=== PATIENT | male | born 1950 | race Caucasian/White ===

== ENCOUNTER 2018-07-30 20:20 | Inpatient (IN) | payer MEDICARE, OTHER ==
[~2018-07-30] VITALS: Ht 180.3 cm; Wt 104.1 kg
[~2018-07-30 20:20] MED LIST: ASP325T; ATOR80TA; EZET10TA5; MULT-608; OMG1KC; REMICADE INFUSION
[2018-07-30] MEDS ORDERED: ASPIRIN 81 MG CHEW (CHILDREN'S ASA) PO STA (20:31)
[2018-07-30] MEDS ORDERED: ASPIRIN 81 MG CHEW (CHILDREN'S ASA) ONE (20:32)
[2018-07-30 20:44] LABS: BASOPHILS % (AUTO) 0 % (0-10); EOSINOPHILS # (AUTO) 0.1 10^3/uL (0.0-0.3); EOSINOPHILS % (AUTO) 1 % (0-10); HEMATOCRIT 41 % (40-54); HEMOGLOBIN 14.9 G/DL (13.3-17.7); LYMPHOCYTES # (AUTO) 2.1 X 10^3 (1.0-4.0); LYMPHOCYTES % (AUTO) 31 % (12-44); MEAN CORPUSCULAR HEMOGLOBIN 34 PG (25-34); MEAN CORPUSCULAR HGB CONC 36 G/DL (32-36); MEAN CORPUSCULAR VOLUME 95 FL (80-99); MEAN PLATELET VOLUME 9.4 FL (7.4-10.4); MONOCYTES # (AUTO) 0.8 X 10^3 (0.0-1.0); MONOCYTES % (AUTO) 11 % (0-12); NEUTROPHILS # (AUTO) 3.9 X 10^3 (1.8-7.8); NEUTROPHILS % (AUTO) 57 % (42-75); PLATELET COUNT 106 10^3/uL (130-400); RED CELL DISTRIBUTION WIDTH 13.6 % (10.0-14.5); WHITE BLOOD COUNT 6.8 10^3/uL (4.3-11.0)
[2018-07-30 20:57] LABS: INR 1.5 (0.8-1.4)
--- NOTE | 2018-07-30 21:01 | ED Chest Pain ---
General Chief Complaint: Respiratory Problems Stated Complaint: TIGHTNESS CHEST,SOB Nursing Triage Note: PT AMB TO [facility] 5 WITH COMPLAINT OF SOA FOR APPROXIMATELY 2 WEEKS. PT STATES HE HAS HAD SOB ON AND OFF FOR 2 WEEKS. STATES HE NOTICES IT ON EXERTION. PT IS SOB TALKING. STATES THE SOB IS SIMILAR TO WHEN HE HAD STENTS PLACE IN 2002. DENIES CHEST PAIN. Nursing Sepsis Screen: No Definite Risk Source: patient Exam Limitations: no limitations History of Present Illness Date Seen by Provider: Jul 30, 2018 Time Seen by Provider: 20:31 Initial Comments Here with shortness of air and some central chest pressure that is worse with exertion that's been going on over the last 2 weeks. Had similar presentation when he needed stents previously which caused him concern. Does have report arthritis and is on Remicade infusions. Denies fever or chills. Denies nausea or vomiting. Shortness of breath is occurring even with talking. Certainly worse with exertion and better with rest. Chest pain is described as a light pressure centrally that comes and goes and is essentially gone right now. Timing/Duration: other (2 weeks) Severity/Quality: mild, pressure Location: central Radiation: no radiation Activities at Onset: none Prior CP/Workup: cardiac cath ASA po SPINNERET PERSON: No NTG SL SPINNERET PERSON: No Associated Symptoms: No abdominal pain, No diaphoresis, No nausea/vomiting; shortness of breath; No weakness Allergies and Home Medications Allergies Coded Allergies: No Known Drug Allergies (Unverified Allergy, Mild, 06/16/09) Patient Home Medication List Home Medication List Reviewed: Yes Review of Systems Review of Systems Constitutional: see HPI; No chills, No fever; weakness EENTM: No Symptoms Reported Respiratory: Denies Cough; Shortness of Air, SOA With Exertion Cardiovascular: Chest Pain; Denies Edema Gastrointestinal: Denies Abdominal Pain, Denies Nausea, Denies Vomiting Genitourinary: No Symptoms Reported Musculoskeletal: no symptoms reported Skin: no symptoms reported All Other Systems Reviewed Negative Unless Noted: Yes Past [place]-Uvdmxg-Uqzssa Hx Past Med/Social Hx: Reviewed Nursing Past Med/Soc Hx Patient Social History Alcohol Use: Denies Use Recreational Drug Use: No Smoking Status: Former Smoker Recent Foreign Travel: No Contact w/Someone Who Travel: No Recent Infectious Disease Expo: No Recent Hopitalizations: No Immunizations Up To Date Tetanus Booster (TDap): Unknown PED Vaccines UTD: Yes Past Medical History Surgeries: Yes Orthopedic Respiratory: No Cardiac: Yes (STENTS) Neurological: No Reproductive Disorders: No Sexually Transmitted Disease: No Genitourinary: Yes Prostate Problems Gastrointestinal: No Musculoskeletal: Yes (RA) Endocrine: No Psychosocial: No Blood Disorders: No Family Medical History Reviewed Nursing Family Hx Physical Exam Vital Signs Vital Signs - First Documented 07/30/18 20:21 Temp 96.8 Pulse 79 Resp 20 B/P (MAP) 144/97 (113) Pulse Ox 93 O2 Delivery Room Air Capillary Refill : Less Than 3 Seconds Height, Weight, BMI Height: 5'11.00" Weight: 210lbs. oz. 95.236535bf; BMI Method:Stated General Appearance: No Apparent Distress, WD/WN HEENT: PERRL/EOMI, Pharynx Normal Neck: Non Tender, Supple Respiratory: No Accessory Muscle Use, No Respiratory Distress, Crackles (few bibasal or crackles) Cardiovascular: Regular Rate, Rhythm, No Murmur Gastrointestinal: Non Tender, Soft Extremity: Normal Range of Motion, Non Tender Neurologic/Psychiatric: Alert, Oriented x3 Skin: Normal Color, Warm/Dry Focused Exam Lactate Level 07/30/18 20:40: Lactic Acid Level 1.30 Lactic Acid Level Laboratory Tests Test 07/30/18 20:40 Lactic Acid Level 1.30 MMOL/L (0.50-2.00) Progress/Results/Core Measures Results/Orders Lab Results Laboratory Tests Test 07/30/18 20:37 07/30/18 20:40 Range/Units White Blood Count 6.8 4.3-11.0 10^3/uL Red Blood Count 4.36 4.35-5.85 10^6/uL Hemoglobin 14.9 13.3-17.7 G/DL Hematocrit 41 40-54 % Mean Corpuscular Volume 95 80-99 FL Mean Corpuscular Hemoglobin 34 25-34 PG Mean Corpuscular Hemoglobin Concent 36 32-36 G/DL Red Cell Distribution Width 13.6 10.0-14.5 % Platelet Count 106 L 130-400 10^3/uL Mean Platelet Volume 9.4 7.4-10.4 FL Neutrophils (%) (Auto) 57 42-75 % Lymphocytes (%) (Auto) 31 12-44 % Monocytes (%) (Auto) 11 0-12 % Eosinophils (%) (Auto) 1 0-10 % Basophils (%) (Auto) 0 0-10 % Neutrophils # (Auto) 3.9 1.8-7.8 X 10^3 Lymphocytes # (Auto) 2.1 1.0-4.0 X 10^3 Monocytes # (Auto) 0.8 0.0-1.0 X 10^3 Eosinophils # (Auto) 0.1 0.0-0.3 10^3/uL Basophils # (Auto) 0.0 0.0-0.1 10^3/uL Prothrombin Time 19.0 H 12.2-14.7 SEC INR Comment 1.5 H 0.8-1.4 Activated Partial Thromboplast Time 41 H 24-35 SEC D-Dimer 1.48 H 0.00-0.49 UG/ML Sodium Level 138 135-145 MMOL/L Potassium Level 4.0 3.6-5.0 MMOL/L Chloride Level 109 H 98-107 MMOL/L Carbon Dioxide Level 20 L 21-32 MMOL/L Anion Gap 9 5-14 MMOL/L Blood Urea Nitrogen 18 7-18 MG/DL Creatinine 1.35 H 0.60-1.30 MG/DL Estimat Glomerular Filtration Rate 52 BUN/Creatinine Ratio 13 Glucose Level 119 H 70-105 MG/DL Calcium Level 9.2 8.5-10.1 MG/DL Corrected Calcium 9.7 8.5-10.1 MG/DL Magnesium Level 2.0 1.8-2.4 MG/DL Total Bilirubin 1.9 H 0.1-1.0 MG/DL Aspartate Amino Transf (AST/SGOT) 57 H 5-34 U/L Alanine Aminotransferase (ALT/SGPT) 38 0-55 U/L Alkaline Phosphatase 76 40-136 U/L Myoglobin 217.9 H 10.0-92.0 NG/ML Troponin I < 0.028 <0.028 NG/ML C-Reactive Protein High Sensitivity 0.19 0.00-0.50 MG/DL B-Type Natriuretic Peptide 92.4 <100.0 PG/ML Total Protein 8.3 H 6.4-8.2 GM/DL Albumin 3.4 3.2-4.5 GM/DL Lactic Acid Level 1.30 0.50-2.00 MMOL/L My Orders Orders - ARSH CLAIRE MD Cbc With Automated Diff (07/30/18 20:31) Magnesium (07/30/18 20:31) Chest 1 View, Ap/Pa Only (07/30/18 20:31) Ekg Tracing (07/30/18 20:31) Cardiac Profile 1 (07/30/18 20:31) Comprehensive Metabolic Panel (07/30/18 20:31) Myoglobin Serum (07/30/18 20:31) Protime With Inr (07/30/18 20:31) Partial Thromboplastin Time (07/30/18 20:31) O2 (07/30/18 20:31) Monitor-Rhythm Ecg Trace Only (07/30/18 20:31) Lipid Panel (07/31/18 06:00) Saline Lock/Iv-Start (07/30/18 20:31) BNP (07/30/18 20:31) Fibrin Degradation Products (07/30/18 20:31) Aspirin Chewable Tablet (Baby Aspirin Ch (07/30/18 20:31) Aspirin Chewable Tablet (Baby Aspirin Ch (07/30/18 20:32) Hs C Reactive Protein (07/30/18 20:42) Lactic Acid Analyzer (07/30/18 20:42) Blood Culture (07/30/18 20:42) Ns Iv 1000 Ml (Sodium Chloride 0.9%) (07/30/18 21:31) Ct Angio Chest W (07/30/18 21:31) Iohexol Injection (Omnipaque 350 Mg/Ml 1 (07/30/18 21:45) Received Contrast (Hold Metformin- Contr (07/30/18 21:45) Cefepime Injection (Maxipime Injection) (07/30/18 22:45) Medications Given in ED Current Medications Medications Dose Ordered Sig/Senait Route Start Time Stop Time Status Last Admin Dose Admin Iohexol 150 ml ONCE ONCE IV 07/30/18 21:45 07/30/18 21:47 DC 07/30/18 21:51 125 ML Vital Signs/I&O 07/30/18 20:21 Temp 96.8 Pulse 79 Resp 20 B/P (MAP) 144/97 (113) Pulse Ox 93 O2 Delivery Room Air Blood Pressure Mean: 113 Progress Progress Note : Progress Note Seen and evaluated. Chest pain protocol initiated. Given patient's status with Remicade, will add blood cultures and lactic acid. Monitor patient. D-dimer elevated. CT angiogram of the chest ordered. Normal saline 1 L bolus ordered. Monitor patient. CT chest does not show PE but does show bilateral pneumonia and this is consistent with chest x-ray. I did discuss the case with Dr. OVALLE at 2230 and he accepts patient for admission, inpatient status. I did discuss the case with Dr. Hart at 2234. He accepts patient in consult. We will initiate cefepime given patient's history of COPD with findings consistent on CT scan. Cefepime 2 g IV ordered. Admit inpatient status. Patient and family agree with plan. Initial ECG Impression Date: Jul 30, 2018 Initial ECG Impression Time: 20:27 Initial ECG Rate: 64 Initial ECG Rhythm: Normal Sinus Initial ECG Comparisson: Unchanged Comment Sinus rhythm with first degree block. No evidence of ST elevation MS. Incomplete right bundle branch block noted. Similar to previous of 06/16/2009. Interpreted by me. Diagnostic Imaging Diagonstic Imaging: Xray Plain Films/CT/US/NM/MRI: chest Comments NAME: KYLIE MILLER [facility] REC#: [id number] PT STATUS: REG ER : 1950 PHYSICIAN: ARSH CLAIRE MD ADMIT DATE: 07/30/18/ER Signed Date of Exam: 07/30/18 CHEST 1 VIEW, AP/PA ONLY INDICATION: Chest pain. FINDINGS: Portable chest. There is consolidated infiltrate in the right upper lobe along the fissure. There also is some alveolar infiltrate in the left lung base. Right lower lobe as well as left upper lung are clear. There is cardiomegaly. No evidence of pulmonary edema. No pneumothorax or pleural effusion. No bony abnormalities. IMPRESSION: Findings are consistent with bilateral pneumonia. Dictated by: Dictated on workstation # [id number] Dict: 07/30/182054 Trans: 07/30/182119 Interpreted by: KALLI MERIDA MD Electronically signed by: KALLI MERIDA MD 07/30/182119 Diagonstic Imaging: CT Plain Films/CT/US/NM/MRI: chest Comments No pulmonary emboli. Findings of COPD with multifocal patchy airspace opacity suspicious for multifocal pneumonia. Ascending thoracic aorta ectasia to 4.5 cm and evidence of coronary artery disease. Recommended clinical follow-up. Departure Communication (Admissions) Time/Spoke to Admitting Phy: 22:30 Time/Spoke to Consulting Phy: 22:34 Impression Primary Impression: Bilateral pneumonia Qualified Codes: J18.9 - Pneumonia, unspecified organism Additional Impression: Chest pain Qualified Codes: R07.9 - Chest pain, unspecified Disposition: ADMITTED INPATIENT Condition: Stable Admissions Decision to Admit Reason: Admit from ER (General) Decision to Admit/Date: Jul 30, 2018 Time/Decision to Admit Time: 22:30 Departure-Patient Inst. Referrals: NO,LOCAL PHYSICIAN (PCP/Family) Primary Care Physician ARSH CLAIRE MD Jul 30, 2018 21:01
[2018-07-30 21:06] LABS: ALANINE AMINOTRANSFERASE 38 U/L (0-55); ALBUMIN 3.4 GM/DL (3.2-4.5); ALKALINE PHOSPHATASE 76 U/L (40-136); BILIRUBIN,TOTAL 1.9 MG/DL (0.1-1.0); BUN/CREATININE RATIO 13; CALCIUM 9.2 MG/DL (8.5-10.1); CARBON DIOXIDE 20 MMOL/L (21-32); CHLORIDE 109 MMOL/L (98-107); CREATININE SERUM 1.35 MG/DL (0.60-1.30); GFR ESTIMATED 52; GLUCOSE 119 MG/DL (70-105); SODIUM 138 MMOL/L (135-145); TOTAL PROTEIN 8.3 GM/DL (6.4-8.2)
[2018-07-30 21:13] LABS: MYOGLOBIN SERUM 217.9 NG/ML (10.0-92.0)
[2018-07-30] MEDS ORDERED: NS IV 1000 ML 1,000 ML IV SCH (21:31)
[2018-07-30] MEDS ORDERED: IOHEXOL 350 MG/ML 150 ML (OMNIPAQUE 350) VIAL IV ONE (21:45)
[2018-07-30] MEDS ORDERED: HOLD METFORMIN - RECEIVED CONTRAST 20 ML VIAL IV SCH (21:45)
[2018-07-30] MEDS ORDERED: CEFEPIME INJECTION 2,000 MG in WATER (STERILE) FOR INJECTION 20 ML IV ONE (22:45)
[2018-07-30 23:25] VITALS: BP 186/102
--- NOTE | 2018-07-30 23:25 | NUR ---
KYLIE MILLER admitted to room 414-1, with an admitting diagnosis of PNEUMONIA AND CHEST PAIN, on 07/30/18 from [place] via , accompanied by STAFF AND FAMILY.KYLIE MILLER introduced to surroundings, call light, bed controls, phone, TV, temperature control, lights, meal times, smoking policy, visitor policy, side rail policy, bathrooms and showers. Patient Rights given to patient in the handbook. KYLIE MILLER verbalizes understanding that [facility] is not responsible for the loss or damage to any personal effects or valuables that are kept in the patients posession during their hospitalization.
[2018-07-30 23:40] VITALS: BP 158/85
[2018-07-30 23:55] VITALS: BP 166/94
[2018-07-31] VITALS (9 sets, daily range): BP systolic 133–168; BP diastolic 78–96
[2018-07-31] MEDS: NS IV 1000 ML 1,000 ML IV SCH ×2 (01:30→02:54)
[2018-07-31] MEDS ORDERED: ACETAMINOPHEN 325 MG TABLET PO PRN (02:45)
[2018-07-31] MEDS ORDERED: ONDANSETRON 4 MG/2 ML (SDV) Z0FRAN IV PRN (02:45)
[2018-07-31] MEDS ORDERED: morphine INJ 4 MG/ML 1 ML (VIAL/SYRINGE) IV PRN (02:45)
[2018-07-31] MEDS ORDERED: NITROGLYCERIN 0.4 MG SL TABS BTL 25'S SL PRN (02:45)
[2018-07-31 03:53] LABS: BASOPHILS % (AUTO) 0 % (0-10); EOSINOPHILS # (AUTO) 0.1 10^3/uL (0.0-0.3); EOSINOPHILS % (AUTO) 2 % (0-10); HEMATOCRIT 38 % (40-54); HEMOGLOBIN 13.5 G/DL (13.3-17.7); LYMPHOCYTES % (AUTO) 39 % (12-44); MEAN CORPUSCULAR HEMOGLOBIN 34 PG (25-34); MEAN CORPUSCULAR HGB CONC 36 G/DL (32-36); MEAN CORPUSCULAR VOLUME 96 FL (80-99); MEAN PLATELET VOLUME 9.7 FL (7.4-10.4); MONOCYTES # (AUTO) 0.7 X 10^3 (0.0-1.0); MONOCYTES % (AUTO) 13 % (0-12); NEUTROPHILS # (AUTO) 2.3 X 10^3 (1.8-7.8); NEUTROPHILS % (AUTO) 46 % (42-75); PLATELET COUNT 84 10^3/uL (130-400); RED CELL DISTRIBUTION WIDTH 13.8 % (10.0-14.5); WHITE BLOOD COUNT 5.1 10^3/uL (4.3-11.0)
[2018-07-31 04:15] LABS: CREATINE KINASE 328 U/L (30-200)
[2018-07-31 04:18] LABS: ALANINE AMINOTRANSFERASE 33 U/L (0-55); ALKALINE PHOSPHATASE 67 U/L (40-136); BILIRUBIN,TOTAL 1.4 MG/DL (0.1-1.0); BUN/CREATININE RATIO 14; CALCIUM 8.3 MG/DL (8.5-10.1); CARBON DIOXIDE 20 MMOL/L (21-32); CHLORIDE 111 MMOL/L (98-107); CREATININE SERUM 1.05 MG/DL (0.60-1.30); GFR ESTIMATED > 60; GLUCOSE 97 MG/DL (70-105); POTASSIUM 3.7 MMOL/L (3.6-5.0); SODIUM 137 MMOL/L (135-145)
[2018-07-31 04:20] LABS: CHOLESTEROL 101 MG/DL (< 200); HDL CHOLESTEROL 32 MG/DL (40-60); TRIGLYCERIDES 62 MG/DL (<150); VLDL CHOLESTEROL 12 MG/DL (5-40)
[2018-07-31 04:23] LABS: MYOGLOBIN SERUM 114.3 NG/ML (10.0-92.0)
[2018-07-31] MEDS ORDERED: RT-ALBUTEROL/IPRATROPIUM 3 ML (DUONEB) VIAL INH PRN (05:15)
--- NOTE | 2018-07-31 06:20 | Diagnostic Imaging Report ---
PROCEDURE: CT angiography of the chest with contrast. TECHNIQUE: Multiple contiguous axial images were obtained through the chest after uneventful bolus administration of intravenous contrast. 2D reconstructed CTA MIP acquisitions were also performed. Auto Exposure Controls were utilized during the CT exam to meet ALARA standards for radiation dose reduction. INDICATION: Dyspnea and elevated d-dimer There is good opacification of pulmonary arteries without intraluminal filling defect. There is aneurysmal dilatation of the ascending thoracic aorta which reaches 4.5 cm in diameter. Coronary artery calcifications are noted. Lungs demonstrate diffuse centrilobular emphysema with superimposed interstitial and groundglass opacities involving the upper and lower lobes bilaterally. There is no significant pleural or pericardial fluid. No pathologic adenopathy is identified. Upper abdominal sections reveal nodular surface contour to the liver. IMPRESSION: No CTA evidence of pulmonary embolism. There is 4.5 cm ascending thoracic aortic aneurysm. There is no evidence of rupture or other acute abnormality in the thorax. There is evidence of background COPD with superimposed groundglass and interstitial markings in both lungs which could be due to multifocal pneumonitis. Dictated by: Dictated on workstation # [id number]
[2018-07-31] MEDS: RT-ALBUTEROL/IPRATROPIUM 3 ML (DUONEB) VIAL INH SCH ×2 (06:59→10:04)
--- NOTE | 2018-07-31 07:47 | Consultation-Cardiology ---
HPI-Cardiology Cardiology Consultation Date of Consultation 07/31/18 Date of Admission Time Seen by Provider: 07:43 Indication: coronary artery disease HPI 68 years or gentleman with history of coronary artery disease, hypertension and hyperlipidemia. Patient was having increasing shortness of breath over the past one to 2 weeks. Denied any chest pain. No palpitation, syncope or near syncopal episodes. Came into the hospital and diagnosed with pneumonia, currently laying down a bit, denied any active chest pain. No palpitation. No fever or chills. Has been having cough productive of brownish sputum Home Medications & Allergies Allergies: Coded Allergies: No Known Drug Allergies (Unverified , 06/16/09) Home Medication List Reviewed: Yes SBH-Tgotgh-Szvqbj Hx Patient Social History Marital Status: Employed/Student: employed Alcohol Use: Denies Use Recreational Drug Use: No Smoking Status: Former Smoker Recent Foreign Travel: No Recent Infectious Disease Expo: No Recent Hopitalizations: No Immunizations Up To Date Tetanus Booster (TDap): Unknown Date of Influenza Vaccine: Mar 02, 2018 Past Medical History past medical history described below Family Medical History Family Medical Hx noncontributory to his current condition Review of Systems Constitutional: see HPI, malaise EENTM: see HPI, no symptoms reported Respiratory: see HPI; No cough; dyspnea on exertion; No hemoptysis, No orthopnea, No phlegm; short of breath; No stridor, No wheezing, No other Cardiovascular: see HPI; No chest pain, No edema, No Hx of Intervention, No palpitations, No syncope, No vascular heart diseas, No other Gastrointestinal: no symptoms reported, see HPI Genitourinary: no symptoms reported, see HPI Musculoskeletal: see HPI, muscle stiffness Skin: no symptoms reported, see HPI Psychiatric/Neurological: No Symptoms Reported, See HPI Reviewed Test Results Reviewed Test Results Lab Laboratory Tests Test 07/30/18 20:37 07/30/18 20:40 07/31/18 02:50 Range/Units White Blood Count 6.8 5.1 4.3-11.0 10^3/uL Red Blood Count 4.36 3.95 L 4.35-5.85 10^6/uL Hemoglobin 14.9 13.5 13.3-17.7 G/DL Hematocrit 41 38 L 40-54 % Mean Corpuscular Volume 95 96 80-99 FL Mean Corpuscular Hemoglobin 34 34 25-34 PG Mean Corpuscular Hemoglobin Concent 36 36 32-36 G/DL Red Cell Distribution Width 13.6 13.8 10.0-14.5 % Platelet Count 106 L 84 L 130-400 10^3/uL Mean Platelet Volume 9.4 9.7 7.4-10.4 FL Neutrophils (%) (Auto) 57 46 42-75 % Lymphocytes (%) (Auto) 31 39 12-44 % Monocytes (%) (Auto) 11 13 H 0-12 % Eosinophils (%) (Auto) 1 2 0-10 % Basophils (%) (Auto) 0 0 0-10 % Neutrophils # (Auto) 3.9 2.3 1.8-7.8 X 10^3 Lymphocytes # (Auto) 2.1 2.0 1.0-4.0 X 10^3 Monocytes # (Auto) 0.8 0.7 0.0-1.0 X 10^3 Eosinophils # (Auto) 0.1 0.1 0.0-0.3 10^3/uL Basophils # (Auto) 0.0 0.0 0.0-0.1 10^3/uL Prothrombin Time 19.0 H 12.2-14.7 SEC INR Comment 1.5 H 0.8-1.4 Activated Partial Thromboplast Time 41 H 24-35 SEC D-Dimer 1.48 H 0.00-0.49 UG/ML Sodium Level 138 137 135-145 MMOL/L Potassium Level 4.0 3.7 3.6-5.0 MMOL/L Chloride Level 109 H 111 H 98-107 MMOL/L Carbon Dioxide Level 20 L 20 L 21-32 MMOL/L Anion Gap 9 6 5-14 MMOL/L Blood Urea Nitrogen 18 15 7-18 MG/DL Creatinine 1.35 H 1.05 0.60-1.30 MG/DL Estimat Glomerular Filtration Rate 52 > 60 BUN/Creatinine Ratio 13 14 Glucose Level 119 H 97 70-105 MG/DL Calcium Level 9.2 8.3 L 8.5-10.1 MG/DL Corrected Calcium 9.7 9.1 8.5-10.1 MG/DL Magnesium Level 2.0 1.8-2.4 MG/DL Total Bilirubin 1.9 H 1.4 H 0.1-1.0 MG/DL Aspartate Amino Transf (AST/SGOT) 57 H 46 H 5-34 U/L Alanine Aminotransferase (ALT/SGPT) 38 33 0-55 U/L Alkaline Phosphatase 76 67 40-136 U/L Myoglobin 217.9 H 114.3 H 10.0-92.0 NG/ML Troponin I < 0.028 < 0.028 <0.028 NG/ML C-Reactive Protein High Sensitivity 0.19 0.00-0.50 MG/DL B-Type Natriuretic Peptide 92.4 <100.0 PG/ML Total Protein 8.3 H 7.0 6.4-8.2 GM/DL Albumin 3.4 3.0 L 3.2-4.5 GM/DL Lactic Acid Level 1.30 0.50-2.00 MMOL/L Total Creatine Kinase 328 H 30-200 U/L Triglycerides Level 62 <150 MG/DL Cholesterol Level 101 < 200 MG/DL LDL Cholesterol Direct 54 1-129 MG/DL VLDL Cholesterol 12 5-40 MG/DL HDL Cholesterol 32 L 40-60 MG/DL Physical Exam Vital Signs Vital Signs - First Documented 07/30/18 07/31/18 20:21 04:37 Temp 96.8 Pulse 79 Resp 20 B/P (MAP) 144/97 (113) Pulse Ox 93 O2 Delivery Room Air FiO2 21 Capillary Refill : Less Than 3 Seconds Height, Weight, BMI Height: 5'11.00" Weight: 229lbs. 6.4oz. 104.083896el; 32.0 BMI Method:Stated General Appearance: No Apparent Distress, WD/WN Eyes: Bilateral Eye Normal Inspection, Bilateral Eye PERRL, Bilateral Eye EOMI HEENT: PERRL/EOMI, TMs Normal, Normal ENT Inspection, Pharynx Normal Neck: Full Range of Motion, Normal Inspection, Non Tender, Supple, Carotid Bruit Respiratory: Chest Non Tender, Lungs Clear, Normal Breath Sounds, No Accessory Muscle Use, No Respiratory Distress Cardiovascular: Regular Rate, Rhythm, No Edema, No Gallop, No JVD, No Murmur, Normal Peripheral Pulses Gastrointestinal: Normal Bowel Sounds, No Organomegaly, No Pulsatile Mass, Non Tender, Soft Back: Normal Inspection, No CVA Tenderness, No Vertebral Tenderness Extremity: Normal Capillary Refill, Normal Inspection, Normal Range of Motion, Non Tender, No Calf Tenderness, No Pedal Edema Neurologic/Psychiatric: Alert, Oriented x3, No Motor/Sensory Deficits, Normal Mood/Affect Skin: Normal Color, Warm/Dry Lymphatic: No Adenopathy A/P-Cardiology Admission Diagnosis Pneumonia Coronary artery disease Hypertension Hyperlipidemia Assessment/Plan Coronary artery disease, history of 2 stents placed in 2002. No recent workup, last stress test was done about [address] Randall Lion. Currently having shortness of breath probably secondary to pneumonia. I discussed with him the management plan recommended stress test as an outpatient once his pneumonia is and trolled in the next Shortness of breath, secondary to pneumonia. Managed by primary care team Hypertension, restart home medication and monitor blood pressure next Hyperlipidemia, monitor lipids History of rheumatoid arthritis maintained on Remicade, followed by Dr. Arteaga Clinical Quality Measures AMI/AHF: ASA po Prior to arrival: No DVT/VTE Risk/Contraindication: Risk Factor Score Per Nursin RFS Level Per Nursing on Admit: 4+=Very High MELISSA JOHNSON MD Jul 31, 2018 07:47
[2018-07-31] MEDS ORDERED: ASPIRIN E.C. 81 MG (ECOTRIN) TAB PO SCH (09:00)
[2018-07-31] MEDS ORDERED: FINA5TAB6 PO (09:52)
[2018-07-31] MEDS ORDERED: ATOR40TA70 PO (09:52)
[2018-07-31] MEDS ORDERED: LEVO75TA6 PO (09:52)
[2018-07-31] MEDS ORDERED: METH2.5T PO (09:52)
[2018-07-31] MEDS ORDERED: FOLI0.8T PO (09:52)
[2018-07-31] MEDS ORDERED: INFL100V IV (09:53)
[2018-07-31] MEDS ORDERED: IBAN3DIS IV (09:54)
--- NOTE | 2018-07-31 09:59 | NUR ---
SPOKE WITH THE PATIENT ABOUT HIS MEDICATIONS. WE WENT OVER THE EXT MED HX AND HE VERIFIED HOW HE TAKES THEM. HE STATES HE TAKES FOLIC ACID OTC DAILY. HE ALSO RECEIVES REMICADE INFUSIONS EVER 2 MONTHS IN [place]. HE STATES HE ALSO GETS [facility] WHEN HE IS THERE ABOUT EVERY OTHER REMICADE INFUSION.
[2018-07-31] MEDS ORDERED: CEFEPIME INJECTION 2,000 MG in WATER (STERILE) FOR INJECTION 20 ML IV SCH (11:00)
--- NOTE | 2018-07-31 13:03 | Discharge Inst-Simple/Standard ---
Discharge Inst-Standard Patient Instructions/Follow Up Plan of Care/Instructions/FU: Please continue to take your medications as written. Please follow up with Dr Hart next week and please establish with a primary care doctor as well. Activity as Tolerated: Yes Discharge Diet: Cardiac Diet Return to The Hospital For: Chest pain, shortness of breath, fever, if you feel you are getting worse. Planned Outpatient Orders/Ref. Pneu Vac Indicated: Yes GISELLE WILKS MD Jul 31, 2018 12:58
[2018-07-31] MEDS ORDERED: L.AC1CAP6 PO (13:04)
[2018-07-31] MEDS ORDERED: CEFD300C3 PO (13:04)
--- NOTE | 2018-07-31 13:18 | Short Stay Summary-Hospitalist ---
History of Present Illness HPI/Chief Complaint Pt is a 68yoCM with a PMH of RA, CAD s/p stent placement who presented to the ER with CC of shortness of breath for the past month. He states that it is mostly with exertion and last night got so bad he felt he couldn't talk. He denies cough, sputum, or fever. This has been going on for about a week but has been getting worse. He also thought he had some chest pain and has a history of CAD so thought he should get examined. 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 Source: patient, family Date Seen 07/31/18 Time Seen by a Provider: 12:05 Attending Physician Mike Reaves MD PCP No,Local Physician Referring Physician Date of Admission Jul 30, 2018 at 22:36 Home Medications & Allergies Home Medications Reviewed patient Home Medication Reconciliation performed by pharmacy medication reconciliations critical systems technician and/or nursing. Patients Allergies have been reviewed. Allergies Allergies Coded Allergies No Known Drug Allergies (Unverified06/16/09) Past Vcwlris-Cujege-Dkonzo Hx Past Med/Social Hx: Reviewed Nursing Past Med/Soc Hx Patient Social History Marrital Status: Employed/Student: employed Alcohol Use: Denies Use Recreational Drug Use: No Smoking Status: Former Smoker Recent Foreign Travel: No Contact w/other who traveled: No Recent Hopitalizations: No Recent Infectious Disease Expo: No Immunizations Up To Date Tetanus Booster (TDap): Unknown Pediatric: Yes Date of Influenza Vaccine: Mar 02, 2018 Past Medical History Surgeries: Orthopedic Reproductive: No Sexually Transmitted Disease: No Genitourinary: Prostate Problems History of Blood Disorders: No Family History Reviewed Nursing Family Hx Review of Systems Constitutional: No chills, No fever EENTM: no symptoms reported Respiratory: cough, dyspnea on exertion; No phlegm; short of breath Cardiovascular: No chest pain Gastrointestinal: no symptoms reported Genitourinary: no symptoms reported Musculoskeletal: no symptoms reported Skin: no symptoms reported Psychiatric/Neurological: No Symptoms Reported Physical Exam Physical Exam Vital Signs Vital Signs - First Documented 07/30/18 07/31/18 20:21 04:37 Temp 96.8 Pulse 79 Resp 20 B/P (MAP) 144/97 (113) Pulse Ox 93 O2 Delivery Room Air FiO2 21 Capillary Refill : Less Than 3 Seconds Height, Weight, BMI Height: 5'11.00" Weight: 229lbs. 6.4oz. 104.703895lr; 32.0 BMI Method:Stated General Appearance: No Apparent Distress, WD/WN Eyes: Bilateral Eye Normal Inspection, Bilateral Eye PERRL, Bilateral Eye EOMI HEENT: PERRL/EOMI, Moist Mucous Membranes; No Scleral Icterus (L), No Scleral Icterus (R) Neck: Full Range of Motion, Supple Respiratory: Lungs Clear, Normal Breath Sounds, No Accessory Muscle Use, No Respiratory Distress Cardiovascular: Regular Rate, Rhythm, No Edema, No JVD, No Murmur, Normal Peripheral Pulses Gastrointestinal: Normal Bowel Sounds, Non Tender, Soft; No Distended, No Guarding Back: Normal Inspection, No CVA Tenderness, No Vertebral Tenderness Extremity: Normal Capillary Refill, Normal Inspection, No Calf Tenderness, No Pedal Edema Neurologic/Psychiatric: Alert, Oriented x3, Normal Mood/Affect Skin: Normal Color, Warm/Dry Results Results/Procedures Labs Patient resulted labs reviewed. Imaging: Reviewed Imaging Report Short Stay Diagnosis Discharge Diagnosis-Short Stay Admission Diagnosis CAP Final Discharge Diagnosis CAP Conclusion Plan Bilateral pneumonia Admitted for IV abx Doing well on room air No leukocytosis Plan to DC home on oral antibiotics Chest Pain history of CAD Cardiology consulted, appreciate recs troponins negative x2 Follow up as an outaptient RA On methotrexate and remicade Follows with rheum in [place] Need for Primary Care Advised to establish with a PCP as is in need for colonoscopy soon and vaccinations List given of local physicians- he believes he will follow up with Dr Dariel Baker Clinical Quality Measures AMI/AHF: ASA po Prior to arrival: No DVT/VTE Risk/Contraindication: Risk Factor Score Per Nursin RFS Level Per Nursing on Admit: 4+=Very High Copy Copies To 1: DARIEL BAKER MD, KATELYN M MD Jul 31, 2018 13:18
--- NOTE | 2018-08-04 08:56 | Physician Query Clarification ---
PQ-Further Specificity Admission/Discharge Admission Date: Jul 30, 2018 at 22:36 Discharge Date: Jul 31, 2018 at 13:54 The medical record reflects the following clinical scenario: History/Risk Factors: COPD, CAD, RA Clinical Findings: SOB, productive brown sputum Treatment: IV Cefepime Question: Can you further specify the bilateral pneumonia per the clinical indicators above? Please document below. 1. Complex pneumonia (please specify type) 2. Bilateral pneumonia type unknown 3. Other, with explanation of the clinical findings. 4. Clinically undetermined, no explanation for the clinical findings. PHYSICIAN RESPONSE Can you specify per above: 2 In responding to this query, please exercise your independent professional judgment. The purpose of this communication is to more accurately reflect the complexity of your patients condition. The fact that a question is asked does not imply that any particular answer is desired or expected. Thank you for your timely response to this clarification. Requestors name: Nicole THIS PHYSICIAN QUERY FORM IS A PERMANENT PART OF THE MEDICAL RECORD NICOLE MURO Aug 04, 2018 08:56 GISELLE WILKS MD Aug 04, 2018 09:22
== END 2018-07-31 13:54 | disposition home or self-care (01) | DRG 195 ==
LOC: EDUNIT# 20:20 → ER 20:21 → 4TH 22:36
PROVIDERS: ADMIT Internal Medicine; ATTEND Internal Medicine
DX: J18.9 Pneumonia, unspecified organism (principal); M06.9 Rheumatoid arthritis, unspecified; J44.9 Chronic obstructive pulmonary disease, unspecified; I25.10 Atherosclerotic heart disease of native coronary artery without angina pectoris; I45.10 Unspecified right bundle-branch block; I10 Essential (primary) hypertension; E78.5 Hyperlipidemia, unspecified; Z95.5 Presence of coronary angioplasty implant and graft; Z87.891 Personal history of nicotine dependence
CPT/HCPCS: 36415; 71045; 71275; 80053; 80061; 82550; 83605; 83735; 83874; 83880; 84484; 85025; 85379; 85610; 85730; 86141; 87040; 93005; 93041; 94640; 94760; 96361; 96374

== ENCOUNTER → 2018-08-25 | Outpatient (CLI) | payer MEDICARE, OTHER ==
[~2018-08-25] MED LIST changes: +ATOR40TA70 PO; +CEFD300C3 PO; +FINA5TAB6 PO; +FOLI0.8T PO; +IBAN3DIS IV; +INFL100V IV; +L.AC1CAP6 PO; +LEVO75TA6 PO; +METH2.5T PO
== END ==
LOC: CARD 12:53
PROVIDERS: ATTEND Physician Assistant
DX: R07.89 Other chest pain (principal); R06.09 Other forms of dyspnea; R06.02 Shortness of breath; M06.9 Rheumatoid arthritis, unspecified
CPT/HCPCS: 93306

== ENCOUNTER → 2018-10-08 | Outpatient (CLI) | payer MEDICARE, OTHER ==
[~2018-10-08] MED LIST changes: +CATHETER FLUSH 10 ML SYR IV PRN; +REGADENOSON 0.4 MG/5 ML SYR (LEXISCAN) IV ONE
[2018-10-08 13:28] VITALS: BP 111/86
--- NOTE | 2018-10-08 17:10 | STRESS TEST ---
DATE OF SERVICE: 10/08/2018 LEXISCAN MYOVIEW STRESS TEST REFERRING PHYSICIAN: Dr. Dariel Mejia. Baseline heart rate is 55, baseline blood pressure 111/86. Baseline EKG is sinus rhythm with no ischemic changes. In summary, the patient was injected with 10.58 mCi of technetium-99 Myoview and the resting images were obtained. Then, the patient received 0.4 mg of Lexiscan followed by 30.0 mCi of technetium-99 Myoview. Throughout the test, there were no EKG changes. The resting and stressed images were reviewed and compared in the short axis, horizontal long axis and vertical long axis views. Review of the images showed diaphragmatic attenuation affecting the quality of the images. There is mild decreased uptake involving the mid to apical inferior wall and inferolateral wall with subtle reversibility. SSS is 5, SDS 3, TID value 1.03. On the gated images, the left ventricle appeared to be in normal size with normal contractility. Calculated ejection fraction 57%. CONCLUSION: 1. The patient tolerated Lexiscan well. 2. Diaphragmatic attenuation affecting the quality of the images with decreased uptake involving the mid to apical inferior wall and inferolateral wall with subtle reversibility probably due to the diaphragmatic attenuation. 3. Normal left ventricular size with normal contractility. Calculated ejection fraction 57%. Job ID: [id number] DocumentID: [id number] Dictated Date: 10/08/2018 16:52:16 Product Development Consultant Date: 10/08/2018 17:10:41 Dictated By: MELISSA JOHNSON MD
== END ==
LOC: CARD 11:43
PROVIDERS: ATTEND Physician Assistant
DX: R07.89 Other chest pain (principal); I25.10 Atherosclerotic heart disease of native coronary artery without angina pectoris; R06.09 Other forms of dyspnea; M06.9 Rheumatoid arthritis, unspecified; Z87.891 Personal history of nicotine dependence
CPT/HCPCS: 78452; 93017

== ENCOUNTER → 2018-10-13 | Outpatient (CLI) | payer MEDICARE, OTHER ==
[~2018-10-13] MED LIST changes: -CATHETER FLUSH 10 ML SYR IV PRN; -REGADENOSON 0.4 MG/5 ML SYR (LEXISCAN) IV ONE; +RT-ALBUTEROL SULF 2.5 MG/3 ML PRE-MIX VIAL INH ONE
--- NOTE | 2018-10-13 18:37 | Diagnostic Imaging Report ---
PROCEDURE: CT chest without contrast. TECHNIQUE: Multiple contiguous axial images were obtained through the chest without the use of intravenous contrast. Auto Exposure Controls were utilized during the CT exam to meet ALARA standards for radiation dose reduction. INDICATION: Pneumonia, cough. FINDINGS: The previous CTA chest exam of 07/30/2018 noted alveolar/interstitial pulmonary infiltrates involving both lungs. These findings were felt to be related to pneumonia/atelectasis superimposed on the patient's underlying chronic pulmonary disease. On this study, both lungs do seem better aerated, particularly the upper lobes. However, there is still a moderate amount of residual pneumonia/atelectasis in each lung base. There is still no sign of a pleural effusion. The previous exam also noted aneurysmal dilatation of the ascending aorta. The aorta remains dilated measuring 4.7 cm in maximum diameter as opposed to 4.6 cm on the previous study. The heart is stable in size when compared to the prior exam. Coronary artery calcifications and a coronary artery stent are again noted. The pulmonary arteries could not be evaluated for embolus formation due to the absence of intravenous contrast. There is no obvious mediastinal or hilar adenopathy. The sections through the upper abdomen fail to show any sign of an acute abnormality. The bone windows show no evidence for a fracture or for a destructive lesion. IMPRESSION: 1. The appearance of the chest has improved since the prior exam as both lungs, particularly the upper lobes do seem better aerated. However, there is still at least a moderate amount of residual pneumonia/atelectasis still present. A short-term (2-3 month) followup chest exam would be recommended for continued evaluation. 2. There is no acute cardiopulmonary abnormality noted. 3. There is persistent aneurysmal dilatation of the ascending aorta. 4. There is coronary artery disease. Dictated by: Dictated on workstation # [id number]
== END ==
LOC: RAD 12:33
PROVIDERS: ATTEND Nurse Practitioner Family
DX: I25.10 Atherosclerotic heart disease of native coronary artery without angina pectoris (principal); I71.2 Thoracic aortic aneurysm, without rupture; J18.9 Pneumonia, unspecified organism; J30.9 Allergic rhinitis, unspecified; G47.10 Hypersomnia, unspecified; F17.201 Nicotine dependence, unspecified, in remission; Z95.5 Presence of coronary angioplasty implant and graft
CPT/HCPCS: 71250; 94060; 94726; 94729

== ENCOUNTER 2018-10-15 19:41 | Outpatient (CLI) | payer MEDICARE, OTHER ==
[~2018-10-15 19:41] MED LIST changes: -RT-ALBUTEROL SULF 2.5 MG/3 ML PRE-MIX VIAL INH ONE
== END 2018-10-16 04:58 | disposition home or self-care (01) ==
LOC: SLEEP 19:41
PROVIDERS: ATTEND Nurse Practitioner Family
DX: G47.33 Obstructive sleep apnea (adult) (pediatric) (principal); G47.10 Hypersomnia, unspecified; R06.00 Dyspnea, unspecified; R09.02 Hypoxemia; J30.9 Allergic rhinitis, unspecified; R06.89 Other abnormalities of breathing; R05 Cough; F17.201 Nicotine dependence, unspecified, in remission
CPT/HCPCS: 95810

== ENCOUNTER 2018-10-22 09:10 | Day surgery (SDC) | payer MEDICARE, OTHER ==
[2018-10-22] VITALS (12 sets, daily range): BP systolic 147–173; BP diastolic 83–97
--- NOTE | 2018-10-22 12:19 | Diagnostic Imaging Report ---
Indication: Abnormal stress test Findings: The lungs are clear. The heart size is within normal limits. There is no effusion or pneumothorax. Impression: No acute appearing abnormality. Dictated by: Dictated on workstation # [id number]
[2018-10-22] MEDS ORDERED: MIDAZOLAM 5 MG/5 ML (VERSED) VIAL ONE (12:30)
[2018-10-22] MEDS ORDERED: fentaNYL INJECTION 100 MCG/2 ML AMP ONE (12:30)
--- NOTE | 2018-10-22 12:50 | Cardiac Procedure Note-CS/ASA ---
Pre-Procedure Note Pre-Op Procedure Note H&P Reviewed The H&P was reviewed, patient examined and no changes noted. Date H&P Reviewed: Oct 22, 2018 Time H&P Reviewed: 12:50 Conscious Sedation Pre-Proced Time 12:50 ASA Score 3 For ASA 3 and 4: Consider anesthesia and medical clearance. Also, for patients with a history of failed moderate sedation consider anesthesia. Airway Lungs Heart ASA score ASA 1: a normal healthy patient ASA 2: a patient with a mild systemic disease (mid diabetes, controlled hypertension, obesity x ASA 3: a patient with a severe systemic disease that limits activity (angina, COPD, prior Myocardial infarction) ASA 4: a patient with an incapacitating disease that is a constant threat to life (CHF, renal failure) ASA 5: a moribund patient not expected to survive 24 hrs. (ruptured aneurysm) ASA 6: a declared brain- patient whose organs are being harvested. For emergent operations, add the letter E after the classification Mallampati Classification Grade 3 Sedation Plan Analgesia, Amnesia, Plan communicated to team members, Discussed options with patient/fam, Discussed risks with patient/fam The patient is an appropriate candidate to undergo the planned procedure, sedation, and anesthesia. The patient immediately re-assessed prior to indication. MELISSA JOHNSON MD Oct 22, 2018 12:50
[2018-10-22] MEDS ORDERED: HEParin 1000 UNIT/ML (10ML VIAL) FOR BOLUS ONE (13:02)
[2018-10-22] MEDS ORDERED: ADENOSINE 3 MG/1 ML (ADENOSCAN) 30ML VIAL IV ONE ×2 (13:02→13:04)
[2018-10-22] MEDS ORDERED: NITRO DRIP 25000 MCG/D5W 0 ML IV ONE (13:04)
[2018-10-22] MEDS ORDERED: NS IV 1000 ML 1,000 ML IV SCH (13:29)
--- NOTE | 2018-10-22 13:29 | Cardiac Cath Report ---
Cardiac Cath Report Physician (s)/Returns Processor (s) Physician MELISSA JOHNSON MD Pre-Procedure Diagnosis Pre-Procedure Diagnosis: coronary artery disease Post-Procedure Note Procedure Start Date: Oct 22, 2018 Name of Procedure: Left heart catheterization FFR to the ramus intermedius Findings/Procedure Note PROCEDURE NOTE: 68 years old gentleman with known history of coronary artery disease, had an abnormal stress test, scheduled for cardiac catheterization possible PTCA. After explaining the procedure to the patient, all pros and cons were explained, all questions were answered. The patient signed the consent and then he was placed on the cardiac catheterization laboratory. Groin was prepped SL fashion local anesthesia was used. Sheath placed in the right femoral artery. Sriram right and left catheter were used to access the coronary system. Pigtail was used to access the left ventricular cavity. Left ventriculogram was not done, pressure was measured Patient was given 3000 units of heparin, Voda 3.5 guide was advanced to the left carotid system, FFR wire was advanced through the ramus intermedius that had the borderline lesion, baseline was 0.98, after adenosine challenge it was 0.92. Consider nonobstructive disease. At the end of the procedure the sheath was removed. Closure device was used FINDINGS: Hemodynamics LV 130/13, end-diastolic pressure of 13 Aorta 134/66 mean of 93 ANATOMY: Left Main is free of obstructive disease Left Anterior Descending has mild disease nonobstructive disease Ramus intermedius has a proximal stent and proximal to the stent there was a borderline lesion, FFR was 0.98, adenosine was given and the lowest value was 0.92 Left Circumflex has mild disease nonobstructive disease Right Coronory Artery is small nondominant artery, subtotally occluded proximally LV Gram was not done pressure was measured CONCLUSION: 1. Subtotal occlusion of a small nondominant right coronary artery, not amendable to intervention 2. Patent stent in the proximal ramus intermedius, moderate lesion proximal to the stent with FFR 0.92 after adenosine injection 3. Otherwise mild coronary artery disease nonobstructive disease DISCUSSION AND RECOMMENDATION: medical therapy is recommended Anesthesia Type: Conscious Sedation Estimated blood loss (mL): 25 ml Contrast Amount: 60 ml Total Radiation Dose: 752 mGy Post-Procedure Diagnosis Post-operative diagnosis: coronary artery disease Hypertension Hyperlipidemia MELISSA JOHNSON MD Oct 22, 2018 13:29
[2018-10-22] MEDS ORDERED: PATIENT MAY USE OWN MEDS, ALL PO SCH (13:30)
--- NOTE | 2018-10-22 13:31 | Discharge Inst-Post CATH ---
Discharge Inst-CATH/EP Post Cardiac Cath/EP D/C Inst Follow Up/Plan Appointment with Dr. lindo's office in 2-4 weeks <b>CARDIAC CATH/EP PROCEDURE DISCHARGE INSTRUCTIONS</b> Cardiac Rehab Please be expecting a follow up call from Cardiac Rehab within in one week. ACTIVITY * Go Home directly and rest. * Limit activity of the leg (or wrist if it was used) for 7 days including aerobics, swimming, jogging, bicycling, etc. * Restrict stair-climbing for 7 days if possible, if not, climb up with your non-cath leg, then bring together on the same step. * Avoid lifting, pushing, pulling or excessive movement of the affected extremity for 7 days. * Customary sexual activity may be resumed after 2 days-use caution not to use a position that strains or causes pain to the affected extremity. * No driving for 24 hours. * NO SMOKING. * Avoid straining for bowel movements for 7 days. * Gentle walking on level ground is allowed. * Returning to work will depend on the type of procedure and the results. Your doctor will discuss this with you. CALL YOUR DOCTOR FOR ANY OF THE FOLLOWING: *If bleeding from the puncture site occurs- Apply gentle pressure to site with clean cloth and call your doctor or EMS. * If a knot or lump forms under the skin, increases in size, or causes pain. * If bruising appears to be worsening or moving further down your leg instead of disappearing. * Temperature above 101 F. CARE OF YOUR GROIN INCISION; * Bruising or purple discoloration of the skin near the puncture site is common. * You may shower only, no bathtub bathing for 5 days. Be careful to avoid slipping as your leg may feel stiff. * If a closure device was used on your femoral artery, please see the attached guide regarding care of the device and your leg. * Leave dressing on FOR 24 hours. CARE OF YOUR WRIST INCISION; * Bruising or purple discoloration of the skin near the puncture site is common. * You may shower. * DO NOT submerge wrist. * Leave dressing on FOR 24 hours. MELISSA JOHNSON MD Oct 22, 2018 13:31
[2018-10-22 13:45] LABS: INR 1.4 (0.8-1.4); PROTHROMBIN TIME PATIENT 17.7 SEC (12.2-14.7)
--- NOTE | 2018-10-22 13:45 | NUR ---
NS INFUSING WHEN PT ARRIVED IN SDC. IV NOT EMPTY, DID NOT HANG NEW BAG AT THIS TIME.
[2018-10-22 13:51] LABS: HEMOGLOBIN 15.7 G/DL (13.3-17.7); MEAN PLATELET VOLUME 10.5 FL (7.4-10.4); RED CELL DISTRIBUTION WIDTH 13.6 % (10.0-14.5); WHITE BLOOD COUNT 7.3 10^3/uL (4.3-11.0)
[2018-10-22 13:53] LABS: BILIRUBIN,URINE NEGATIVE (NEGATIVE); GLUCOSE, URINE (UA) NEGATIVE (NEGATIVE); KETONES,URINE NEGATIVE (NEGATIVE); LEUKOCYTE ESTERASE ,URINE NEGATIVE (NEGATIVE); NITRITE,URINE NEGATIVE (NEGATIVE); PH,URINE 5 (5-9); PROTEIN,URINE NEGATIVE (NEGATIVE); UROBILINOGEN,URINE NORMAL (NORMAL)
[2018-10-22 13:54] LABS: BACTERIA,URINE NEGATIVE /HPF; CLARITY,URINE CLEAR; COLOR,URINE YELLOW
[2018-10-22] MEDS ORDERED: LIDOCAINE 1% INJ 20 ML 20 ML VIAL ONE (14:00)
[2018-10-22] MEDS ORDERED: HEParin (CATH LAB) 2,000 ML IV ONE (14:00)
[2018-10-22] MEDS ORDERED: NS IV 1000 ML 1,000 ML ONE (14:00)
[2018-10-22 15:23] LABS: ALANINE AMINOTRANSFERASE 26 U/L (0-55); ALBUMIN 3.5 GM/DL (3.2-4.5); ALKALINE PHOSPHATASE 73 U/L (40-136); BILIRUBIN,TOTAL 1.3 MG/DL (0.1-1.0); BUN/CREATININE RATIO 14; CALCIUM 9.1 MG/DL (8.5-10.1); CARBON DIOXIDE 20 MMOL/L (21-32); CHLORIDE 110 MMOL/L (98-107); CHOLESTEROL 122 MG/DL (< 200); CREATININE SERUM 1.08 MG/DL (0.60-1.30); GFR ESTIMATED > 60; GLUCOSE 91 MG/DL (70-105); HDL CHOLESTEROL 37 MG/DL (40-60); POTASSIUM 3.8 MMOL/L (3.6-5.0); SODIUM 138 MMOL/L (135-145); TOTAL PROTEIN 8.6 GM/DL (6.4-8.2); TRIGLYCERIDES 88 MG/DL (<150); VLDL CHOLESTEROL 18 MG/DL (5-40)
--- NOTE | 2018-10-22 18:19 | NUR ---
NS INFUSION STOPPED AT THIS TIME, BAG EMPTY. PT RECEIVED 1000ML NS TOTAL.
--- NOTE | 2018-10-22 18:50 | NUR ---
PT AMBULATED DOWN HALLWAY AND BACK TO ROOM, HOOKED TO [facility]. NO BLEEDING COMPLICATIONS NOTED, PT AMBULATED WITH STEADY GAIT. RIGHT GROIN SITE CLEAN, DRY, SOFT TO TOUCH, NO SIGNS OF HEMATOMA NOTED. DRESSING INTACT.
== END 2018-10-22 19:01 | disposition home or self-care (01) ==
LOC: CATH 09:10 → SDC 13:45 → CATH 19:01
PROVIDERS: ATTEND Internal Medicine Cardiovascular Disease
DX: I25.10 Atherosclerotic heart disease of native coronary artery without angina pectoris (principal); I10 Essential (primary) hypertension; E78.5 Hyperlipidemia, unspecified; I65.29 Occlusion and stenosis of unspecified carotid artery; M06.9 Rheumatoid arthritis, unspecified; G47.10 Hypersomnia, unspecified; Z95.5 Presence of coronary angioplasty implant and graft; Z79.899 Other long term (current) drug therapy; Z87.891 Personal history of nicotine dependence
CPT/HCPCS: 36415; 71045; 80053; 80061; 81000; 85027; 85347; 85610; 85730; 93458

== ENCOUNTER → 2018-12-16 | Outpatient (CLI) | payer MEDICARE, OTHER ==
[~2018-12-16] MED LIST changes: +ATOR20TA66 PO; +FOLI1TAB24 PO; +LISI10TA2 PO
== END ==
LOC: PREOP 05:59
PROVIDERS: ATTEND Internal Medicine Critical Care Medicine
DX: Z01.818 Encounter for other preprocedural examination (principal); J18.9 Pneumonia, unspecified organism; G47.36 Sleep related hypoventilation in conditions classified elsewhere; G47.10 Hypersomnia, unspecified; F17.201 Nicotine dependence, unspecified, in remission; R91.8 Other nonspecific abnormal finding of lung field

== ENCOUNTER 2018-12-17 06:58 | Day surgery (SDC) | payer MEDICARE, OTHER ==
[~2018-12-17] VITALS: Ht 180.3 cm; Wt 104.1 kg
[2018-12-17] VITALS (15 sets, daily range): BP systolic 122–144; BP diastolic 68–81
[~2018-12-17 06:58] MED LIST changes: -ATOR20TA66 PO; -FOLI1TAB24 PO; -LISI10TA2 PO
[2018-12-17] MEDS ORDERED: LIDOCAINE JELLY 2% 6 ML SYRINGE TOP ONE (06:59)
[2018-12-17] MEDS ORDERED: LIDOCAINE PF 2% 5 ML (XYLOCAINE) VIAL INJ ONE (06:59)
[2018-12-17] MEDS ORDERED: LIDOCAINE PF 1% 2 ML VIAL IJ ONE (06:59)
[2018-12-17] MEDS ORDERED: LIDOCAINE JELLY 2% (XYLOCAINE) 5 ML TUBE TOP ONE (06:59)
[2018-12-17] MEDS ORDERED: NS IV 500 ML 500 ML ONE (07:28)
[2018-12-17] MEDS ORDERED: NS IV 500 ML 500 ML IV PRN (07:34)
[2018-12-17] MEDS ORDERED: MIDAZOLAM 2 MG/2 ML (VERSED) VIAL IVP ONE (07:45)
[2018-12-17] MEDS ORDERED: fentaNYL INJECTION 100 MCG/2 ML AMP IVP ONE (07:45)
[2018-12-17] MEDS ORDERED: fentaNYL INJECTION 100 MCG/2 ML AMP ONE ×2 (07:46)
[2018-12-17] MEDS ORDERED: MIDAZOLAM 2 MG/2 ML (VERSED) VIAL ONE ×3 (07:47)
[2018-12-17] MEDS ORDERED: FOLI1TAB24 PO (07:49)
[2018-12-17] MEDS ORDERED: ATOR20TA66 PO (07:49)
[2018-12-17] MEDS ORDERED: LISI10TA2 PO (07:58)
--- NOTE | 2018-12-17 08:31 | Pulmonary Procedures ---
Pulmonary Procedures Date of Procedure Date of Service: Dec 17, 2018 Bronch Bronchoscopy with brush x 2 of saran, RML bronchoalveolar lavage (BAL), bilateral bronchial washes obtained. Preop DX PNA unresolving Postop DX: same -- No endobronchial mass Complications: none After informed consent obtained and formal time out pt was sedated using Fentanyl and Versed. Bronchoscope was advanced through the nare and vocal cords. 1% lidocaine was used to anesthetize vocal cords, epiglottis, saran, and left/right main stem bronchus. An anatomical tour was undertaken down to the segmental bronchi bilaterally. No endobronchial lesions noted. brush x 2 of saran, RML bronchoalveolar lavage (BAL), bilateral bronchial washes obtained. Pt tolerated procedure well. No complications noted. Stat CXR is pending. NANCY MCCORMACK DO Dec 17, 2018 08:31
--- NOTE | 2018-12-17 08:32 | Progress Note-Pre Operative ---
Pre-Operative Progress Note H&P Reviewed The H&P was reviewed, patient examined and no changes noted. Time Seen by Provider: 07:30 Date H&P Reviewed: Dec 17, 2018 Time H&P Reviewed: 08:32 Pre-Operative Diagnosis: NANCY Crawford DO Dec 17, 2018 08:32
--- NOTE | 2018-12-17 08:33 | Pre-Op Note & Conscious Sedat ---
Pre-Operative Progress Note H&P Reviewed The H&P was reviewed, patient examined and no changes noted. Date H&P Reviewed: Dec 17, 2018 Time H&P Reviewed: 07:00 Conscious Sedation Pre-Proced Time 08:32 ASA Score 3 For ASA 3 and 4: Consider anesthesia and medical clearance. Also, for patients with a history of failed moderate sedation consider anesthesia. Airway Lungs Heart ASA score ASA 1: a normal healthy patient ASA 2: a patient with a mild systemic disease (mid diabetes, controlled hypertension, obesity ASA 3: a patient with a severe systemic disease that limits activity (angina, COPD, prior Myocardial infarction) ASA 4: a patient with an incapacitating disease that is a constant threat to life (CHF, renal failure) ASA 5: a moribund patient not expected to survive 24 hrs. (ruptured aneurysm) ASA 6: a declared brain- patient whose organs are being harvested. For emergent operations, add the letter E after the classification Mallampati Classification Grade 3 Sedation Plan Analgesia, Amnesia, Plan communicated to team members, Discussed options with patient/fam, Discussed risks with patient/fam The patient is an appropriate candidate to undergo the planned procedure, sedation, and anesthesia. The patient immediately re-assessed prior to indication. NANCY MCCORMACK DO Dec 17, 2018 08:33
--- NOTE | 2018-12-17 09:49 | Diagnostic Imaging Report ---
INDICATION: Followup bronchoscopy PA chest 9:13 AM Heart size and pulmonary vascularity are normal. There are patchy infiltrates at the lung bases. There are no effusions or pneumothoraces. IMPRESSION: Small patchy infiltrates at the lung bases. Dictated by: Dictated on workstation # [id number]
[2018-12-17 12:04] LABS: BF OTHER CELLS 50 %; BODY FLUID APPEARENCE SLT CLDY; BODY FLUID COLOR PALE YELLOW; BODY FLUID SOURCE OTHER; LYMPHOCYTES,BODY FLUID 49 %
== END 2018-12-17 09:50 | disposition home or self-care (01) ==
LOC: ENDO 06:58
PROVIDERS: ATTEND Internal Medicine Critical Care Medicine
DX: J18.9 Pneumonia, unspecified organism (principal); J40 Bronchitis, not specified as acute or chronic; G47.36 Sleep related hypoventilation in conditions classified elsewhere; G47.10 Hypersomnia, unspecified; F17.211 Nicotine dependence, cigarettes, in remission; Z88.1 Allergy status to other antibiotic agents; Z91.048 Other nonmedicinal substance allergy status; Z79.899 Other long term (current) drug therapy
CPT/HCPCS: 71045; 87015; 87070; 87101; 87116; 87205; 87206; 88112; 88305; 88312; 89051; 94640

== ENCOUNTER → 2019-09-17 | Outpatient (CLI) | payer MEDICARE, OTHER ==
[~2019-09-17] MED LIST changes: +ATOR20TA66 PO; +FOLI1TAB24 PO; +LISI10TA2 PO
== END ==
LOC: LABNPT 15:13
PROVIDERS: ATTEND Internal Medicine Pulmonary Disease
DX: Z01.89 Encounter for other specified special examinations (principal)
CPT/HCPCS: 87635

== ENCOUNTER 2019-12-17 09:00 | Outpatient (RCR) | payer MEDICARE, OTHER ==
[2019-10-08 11:28] LABS: ALBUMIN 3.9 GM/DL (3.2-4.5)
[2019-10-08 11:31] LABS: TOTAL PROTEIN 7.7 GM/DL (6.4-8.2)
[2019-10-08 11:37] LABS: BILIRUBIN,DIRECT 0.7 MG/DL (0.0-0.3); BILIRUBIN,INDIRECT 1.3 MG/DL
[2019-11-14 13:24] LABS: ALBUMIN 3.9 GM/DL (3.2-4.5)
[2019-11-14 13:27] LABS: TOTAL PROTEIN 7.5 GM/DL (6.4-8.2)
[2019-11-14 13:29] LABS: BILIRUBIN,TOTAL 1.4 MG/DL (0.1-1.0)
[2019-11-14 13:33] LABS: BILIRUBIN,DIRECT 0.6 MG/DL (0.0-0.3); BILIRUBIN,INDIRECT 0.8 MG/DL
[2019-12-17 09:44] LABS: BILIRUBIN,DIRECT 0.7 MG/DL (0.0-0.3); BILIRUBIN,INDIRECT 1.2 MG/DL; BILIRUBIN,TOTAL 1.9 MG/DL (0.1-1.0); TOTAL PROTEIN 7.9 GM/DL (6.4-8.2)
== END 2020-01-06 | disposition home or self-care (01) ==
LOC: LAB 09:00
PROVIDERS: ATTEND Internal Medicine Pulmonary Disease
DX: J84.9 Interstitial pulmonary disease, unspecified (principal); Z79.899 Other long term (current) drug therapy
CPT/HCPCS: 36415; 80076

== ENCOUNTER → 2019-12-28 | Outpatient (CLI) | payer MEDICARE, OTHER ==
[~2019-12-28] MED LIST changes: +CATHETER FLUSH 10 ML SYR IV PRN; +HOLD METFORMIN - RECEIVED CONTRAST 20 ML VIAL IV SCH; +IOHEXOL 350 MG/ML 100 ML (OMNIPAQUE 350) VIAL IV ONE; +NS 100 ML (IVPB) BAG IV ONE
[2019-12-28 10:33] LABS: BUN/CREATININE RATIO 8; CREATININE SERUM 0.97 MG/DL (0.60-1.30); GFR ESTIMATED > 60
--- NOTE | 2019-12-28 12:25 | Diagnostic Imaging Report ---
PROCEDURE: CT chest with contrast only. TECHNIQUE: Multiple contiguous axial images were obtained through the chest after administration of intravenous contrast. Auto Exposure Controls were utilized during the CT exam to meet ALARA standards for radiation dose reduction. INDICATION: Anterior chest wall pain and shortness of breath. COMPARISON: 12/08/2018. FINDINGS: No axillary lymphadenopathy is identified. No mediastinal or hilar lymphadenopathy is identified. There is some aneurysmal dilatation of the ascending thoracic aorta measuring 4.5 cm in AP diameter. This is stable when compared to CT dating back to 07/30/2018. 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 No definite extension into the brachiocephalic artery is seen. This appears similar when compared with the exam from 07/30/2018. No pericardial or pleural fluid is identified. Parenchymal evaluation does show centrilobular emphysematous changes throughout both lungs. There are some interstitial changes in both lower lobes. The groundglass infiltrates in the lung bases on the prior study have resolved. No discrete mass is detected. The upper abdomen is unremarkable. IMPRESSION: 1. Significantly improved aeration to both lungs when compared with the prior CT from 12/08/2018. The groundglass airspace infiltrates in the bilateral lower lobes have resolved. 2. Stable aneurysmal dilatation of the ascending thoracic aorta. 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 The remainder of the aortic arch as well as the descending thoracic aorta is of normal caliber. Dictated by: Dictated on workstation # [id number]
== END ==
LOC: RAD 11:15
PROVIDERS: ATTEND Physician Assistant
DX: I71.2 Thoracic aortic aneurysm, without rupture (principal); M06.9 Rheumatoid arthritis, unspecified; I10 Essential (primary) hypertension; I65.23 Occlusion and stenosis of bilateral carotid arteries; R91.8 Other nonspecific abnormal finding of lung field
CPT/HCPCS: 36415; 71260; 82565; 84520

== ENCOUNTER → 2020-06-06 | Outpatient (CLI) | payer MEDICARE, OTHER ==
[~2020-06-06] MED LIST changes: -CATHETER FLUSH 10 ML SYR IV PRN; -FOLI1TAB24 PO; +FOLI1TAB33 PO; -HOLD METFORMIN - RECEIVED CONTRAST 20 ML VIAL IV SCH; -IOHEXOL 350 MG/ML 100 ML (OMNIPAQUE 350) VIAL IV ONE; -NS 100 ML (IVPB) BAG IV ONE
--- NOTE | 2020-06-06 11:51 | Diagnostic Imaging Report ---
PROCEDURE: CT chest without contrast. TECHNIQUE: Multiple contiguous axial images were obtained through the chest without the use of intravenous contrast. Auto Exposure Controls were utilized during the CT exam to meet ALARA standards for radiation dose reduction. DATE: June 06, 2020. COMPARISON: CT chest December 28, 2019. December 08, 2018. Additional CT chest imaging dating back to July 30, 2018. INDICATION: 70-year-old male, shortness of breath. PROCEDURE: Axial noncontrasted CT images of the chest. Noncontrasted limits the evaluation of the mediastinum and vascular structures. FINDINGS: There is no identified pulmonary nodule. There is no lung mass. There are mild findings of emphysema. There is mild right lower lobe bronchiectasis. There are predominantly linear opacities in the right lower lobe, left lower lobe, and lingula compatible with scarring and/or atelectasis. There is no additional focal airspace consolidation. There is no pneumothorax. There is no pleural effusion. The heart is not enlarged. There is no pericardial effusion. There are coronary artery calcifications. The ascending thoracic aorta measures up to 4.7 cm in diameter. There is no identified abnormally enlarged mediastinal or axillary lymph node meeting CT size criteria for adenopathy. The liver contours are nodular consistent with cirrhosis. There is no identified acute bony abnormality. There are multilevel degenerative changes of the spine. IMPRESSION: 1. Mild right lower lobe bronchiectasis. Peripheral linear opacities in the right lower lobe, left lower lobe, and lingula consistent with mild scarring and/or atelectasis. 2. Mild findings of emphysema. 3. No acute cardiopulmonary abnormality. 4. Aneurysmal dilation of the ascending aorta to 4.7 cm in diameter. The degree of dilation of the ascending aorta measures mildly increased in size since December 28, 2019 where previously measured 4.4 cm in maximum diameter. 5. Findings compatible with cirrhosis. Dictated by: Dictated on workstation # [id number]
== END ==
LOC: RAD 09:28
PROVIDERS: ATTEND Nurse Practitioner
DX: I71.2 Thoracic aortic aneurysm, without rupture (principal); J47.9 Bronchiectasis, uncomplicated; J43.9 Emphysema, unspecified; R91.8 Other nonspecific abnormal finding of lung field
CPT/HCPCS: 71250

== ENCOUNTER → 2020-07-05 | Outpatient (CLI) | payer MEDICARE, OTHER ==
[~2020-07-05] MED LIST changes: -FOLI0.8T PO; +FOLI0.8T4 PO; -LISI10TA2 PO; +LISI10TA25 PO
--- NOTE | 2020-07-05 11:53 | Diagnostic Imaging Report ---
EXAMINATION: Chest, 2 views. HISTORY: Chest pain. COMPARISON: 06/06/2020. FINDINGS: The lung volumes are normal. Patchy opacities are seen in the left lung base. No large pleural effusion or pneumothorax is seen. The cardiomediastinal silhouette is normal in size and contour. There is calcified aortic atherosclerotic plaque. No acute osseous abnormality is seen. IMPRESSION: Small amount of patchy opacities in the left lung base, likely representing atelectasis/scarring. Dictated by: Dictated on workstation # [id number]
== END ==
LOC: RAD 11:37
PROVIDERS: ATTEND Internal Medicine Pulmonary Disease
DX: J84.9 Interstitial pulmonary disease, unspecified (principal); R91.8 Other nonspecific abnormal finding of lung field
CPT/HCPCS: 71046

== ENCOUNTER 2023-04-04 09:57 | Inpatient (IN) | payer MEDICARE, OTHER ==
[~2023-04-04] VITALS: Ht 180.3 cm; Wt 87.2 kg
[~2023-04-04 09:57] MED LIST changes: +ALBU2.5V4 NEB; +LEVO88TA54 PO; +LISI20TA26 PO
[2023-04-04] MEDS ORDERED: MELATONIN 3 MG TABLET PO PRN (10:30)
[2023-04-04] MEDS ORDERED: ANTACID SUSPENSION 30 ML UDC PO PRN (10:30)
[2023-04-04] MEDS ORDERED: guaiFENesin 600 MG TABLET PO PRN (10:30)
[2023-04-04] MEDS ORDERED: ACETAMINOPHEN 325 MG TABLET PO PRN (10:30)
[2023-04-04] MEDS ORDERED: AZITHROMYCIN INJECTION 500 MG in NS (IVPB) 250 ML 250 ML IV SCH ×2 (10:30→18:00)
[2023-04-04] MEDS ORDERED: ENOXAPARIN 40 MG/0.4 ML SYRINGE SC SCH (10:30)
[2023-04-04] MEDS ORDERED: BISACODYL 10 MG SUPPOSITORY PR PRN (10:30)
[2023-04-04] MEDS ORDERED: ONDANSETRON INJECTION 4 MG/2 ML (SDV) IV PRN (10:30)
[2023-04-04] MEDS ORDERED: RT-ALBUTEROL SULF 2.5 MG/3 ML PRE-MIX VIAL INH PRN (10:30)
[2023-04-04] MEDS ORDERED: MILK OF MAGNESIA 400 MG/5 ML 30 ML UDC PO PRN (10:30)
[2023-04-04] MEDS ORDERED: CALCIUM CARBONATE 500 MG CHEW TABLET PO PRN (10:30)
[2023-04-04] MEDS ORDERED: LACTULOSE SYRUP 10GM/15ML 30ML UDC PO PRN (10:30)
[2023-04-04] MEDS ORDERED: CATHETER FLUSH 10 ML SYR IVP PRN (10:45)
[2023-04-04 11:27] VITALS: BP 143/84
--- NOTE | 2023-04-04 13:46 | Physical Therapy Evaluation ---
PT Evaluation-General Medical Diagnosis Admission Date Apr 04, 2023 at 10:25 Medical Diagnosis: post covid/SOA Onset Date: Mar 26, 2023 Therapy Diagnosis Therapy Diagnosis: debility Height/Weight Height (Feet): 5 Height (Inches): 11.00 Weight (Pounds): 229 Weight (Ounces): 6.4 Precautions Precautions/Isolations: Fall Prevention, Standard Precautions Referral Physician: Hussain Reason for Referral: Evaluation/Treatment Medical History Current History SWB due to decreased pulmonary function Reviewed History: Yes Social History Home: Single Level Current Living Status: Spouse Entry Into Home: Stairs With Railing PT Steps Into Home: 5 Prior Prior Level of Function SCALE: Activities may be completed with or without assistive devices. 8-Nmzzzlyhzn-zezuwfd completes the activity by him/herself with no assistance from a helper. 5-Set-up or Clean-up Assistance-helper sets up or cleans up; patient completes activity. [place] assists only prior to or following the activity. 4-Supervision or Touching Assistance-helper provides verbal cues and/or touching/steadying and/or contact guard assistance as patient completes activity. Assistance may be provided throughout the activity or intermittently. 3-Partial/Moderate Assistance-helper does LESS THAN HALF the effort. [place] lifts, holds or supports trunk or limbs, but provides less than half the effort. 2-Substantial/Maximal Assistance-helper does MORE THAN HALF the effort. [place] lifts or holds trunk or limbs and provides more than half the effort. 1-Kfpwqddyx-priiis does ALL the effort. Patient does none of the effort to complete the activity. Or, the assistance of 2 or more helpers is required for the patient to complete the activity. If activity was not attempted, code reason: 7-Patient Refused. 9-Not Applicable-not attempted and the patient did not perform the activity before the current illness, exacerbation or injury. 10-Not Attempted due to Environmental Limitations-(lack of equipment, weather restraints, etc.). 88-Not Attempted due to Medical Conditions or Safety Concerns. Bed Mobility: 6 Transfers (B,C,W/C): 6 Gait: 6 Stairs: 6 Indoor Mobility (Ambulation): Independent Stairs: Independent Prior Devices Use: None PT Evaluation-Current Subjective Patient agrees to PT. Pain Section J - Health Conditions 1. Rarely or not at all 2. Occasionally 3. Frequently 4. Almost constantly 8. Unable to answer Pain Effect on Sleep: 1 Pain Interference with Therapy: 1 Pain Interference w/Day-to-Day: 1 Objective Patient Orientation: Normal For Age Attachments: Oxygen (7L oxymask) ROM/Strength ROM Lower Extremities bilateral LE WFL Strength Lower Extremities 5/5 grossly bilateral LE all planes Integumentary/Posture Bowel Incontinence: No Bladder Incontinence: No Posture WFL Neuromuscular (Tone, Coordination, Reflexes) grossly intact Sensory Vision: Functional Hearing: Hearing Aid/Aides Transfers Roll Left & Right (QC): 6 Sit to Lying (QC): 6 Lying to Sitting/Side of Bed(Q: 6 Sit to Stand (QC): 6 Chair/Phm-bh-Ncsnk Xfer(QC): 6 Toilet Transfer (QC): 6 Car Transfer (QC): 6 Gait Mode of Locomotion: Walk Anticipated Mode of Locomotion: Walk Walk 10 feet (QC): 6 Walk 50 ft with 2 Turns(QC): 6 Walk 150 ft (QC): 6 Walking 10ft/uneven surface-QC: 6 Distance: >300' Gait Assistive Device: None Comments/Gait Description safe and functional/patient pushes O2 tank Wheelchair Training Wheel 50 ft with 2 turns (QC): 9 Wheel 150 ft (QC): 9 Stairs #of Steps: 5 1 Step (curb) (QC): 6 4 Steps (QC): 6 12 Steps (QC): 9 Balance Sitting Static: Normal Sitting Dynamic: Normal Standing Static: Normal Standing Dynamic: Normal Picking up an Object (QC): 6 Treatment Patient's SAO2 decreases to 80% on 10L oxymask with activity. Patient educated on standing and sitting recovery periods due to aide in SAO2 recovery. Spouse present. Assessment/Needs Patient is currently at independent LOF with all gross motor skills and does not require skilled PT intervention at this time. Patient's pulmonary function is diminished. PT educated and instructed patient and spouse to ambulate with O2 PRN in hallway and to perform breathing exercises every hour. Patient voices understanding. Rehab Potential: Fair PT Cafe Manager Goals Cafe Manager Goals PT Cafe Manager Goals Time Frame: Apr 04, 2023 Roll Left to Right (QC): 6 Sit to Lying (QC): 6 Lying-Sitting on Side/Bed(QC): 6 Sit to Stand (QC): 6 Chair/Iqk-nw-Mhoik Xfer(QC): 6 Toilet/Commode Transfer (QC): 6 Car Transfer (QC): 6 Walk 10 feet (QC): 6 Walk 10ft-Uneven Surface(QC): 6 Walk 50ft with 2 Turns (QC): 6 Walk 150 ft (QC): 6 Does the Pt use WC or Scooter?: No Wheel 50 feet with 2 turns (QC: 9 Wheel 150 feet: 9 1 Step (curb) (QC): 6 4 Steps (QC): 6 12 Steps (QC): 9 Picking up an Object (QC): 6 PT Plan Treatment/Plan Treatment Plan: Discontinue PT, goals met Treatment Duration: Apr 04, 2023 Frequency: 1 time per week Estimated Hrs Per Day: .5 hour per day Patient and/or Family Agrees t: Yes Safety Risks/Education Patient Education: Instructions to Caregiver, Disease Process Teaching Recipient: Patient, Family Teaching Methods: Discussion Response to Teaching: Verbalize Understanding Time Time In: 1230 Time Out: 1255 DATE: Apr 04, 2023 Total Billed Treatment Time: 25 Total Billed Treatment 1 visit EVModC 10 min FA 15 min JAVED HAGAN PT Apr 04, 2023 13:46
[2023-04-04] MEDS: aCETylcysteine 20% (RT/PO) 4 ML SOLN VIAL INH SCH ×2 (14:07→21:17)
[2023-04-04] MEDS: RT-Ipratropium/Albuterol NEB 3 ML VIAL INH SCH ×2 (14:07→21:16)
--- NOTE | 2023-04-04 14:21 | Occupational Therapy Eval ---
OT Evaluation-General/PLF Medical Diagnosis Admission Date Apr 04, 2023 at 10:25 Medical Diagnosis: post covid/SOA Onset Date: Mar 26, 2023 Therapy Diagnosis Therapy Diagnosis: SOA Height/Weight Height (Feet): 5 Height (Inches): 11.00 Weight (Pounds): 229 Weight (Ounces): 6.4 Precautions Precautions/Isolations: Fall Prevention, Standard Precautions Weight Bear Status Weight Bearing Restriction: Full Weight Bearing Location Restriction: LE Bilateral, UE Bilateral Referral Physician: Hussain Referral Reason: Activity Tolerance, Evaluation/Treatment Medical History Additional Medical History LOW PULMONARY ENDURANCE Social History Home: Single Level Current Living Status: Spouse Entry Into Home: Stairs With Railing Steps Into Home: 5 ADL-Prior Level of Function SCALE: Activities may be completed with or without assistive devices. 4-Ctjpuehcrx-beiotpi completes the activity by him/herself with no assistance from a helper. 5-Set-up or Clean-up Assistance-helper sets up or cleans up; patient completes activity. [place] assists only prior to or following the activity. 4-Supervision or Touching Assistance-helper provides verbal cues and/or touching/steadying and/or contact guard assistance as patient completes activity. Assistance may be provided throughout the activity or intermittently. 3-Partial/Moderate Assistance-helper does LESS THAN HALF the effort. [place] lifts, holds or supports trunk or limbs, but provides less than half the effort. 2-Substantial/Maximal Assistance-helper does MORE THAN HALF the effort. [place] lifts or holds trunk or limbs and provides more than half the effort. 4-Lsikflkic-skqvtt does ALL the effort. Patient does none of the effort to complete the activity. Or, the assistance of 2 or more helpers is required for the patient to complete the activity. If activity was not attempted, code reason: 7-Patient Refused. 9-Not Applicable-not attempted and the patient did not perform the activity before the current illness, exacerbation or injury. 10-Not Attempted due to Environmental Limitations-(lack of equipment, weather restraints, etc.). 88-Not Attempted due to Medical Conditions or Safety Concerns. Self Care: Independent Functional Cognition: Independent DME/Equipment Comments Patient reports no DME at home, OT recommends Home health evaluation w/ DME recommendation for energy conservation and environmental modifications Patient reports walking the dog outside at home, use of a weight machine and ex ercise equipment OT Current Status Subjective Agreeable to participation of evaluation Pain Numeric Pain Scale: 0-No Pain Mental Status/Objective Patient Orientation: Person, Place, Time, Situation Attachments: Oxygen (7 liters/mask d/t nasal fx history) Current Glasses/Contacts: Yes Hearing Aids: Yes Hand Dominance: Right Upper Extremity ROM BUE ROM WFLS Upper Extremity Coordination INTACT Upper Extremity Sensation INTACT BUE Upper Extremity Strength +4/5 BUE shoulders/elbows, chief inspector 5/5 ADL-Treatment ADL-Current Patient performs all ADL independently w/o assistive devices. OT provided Energy conservation handouts for Prioritize/Plan/Pace/Position/DME use for I/ADLs. Patient completes UB/LB dressing including velcro/buckle sandals and pull on socks w/ 02 93-86% 7 liters Eating (QC): 6 Oral Hygiene (QC): 6 Shower/Bathe Self (QC): 7 (Patietn instructed to wear 02 when in shower, use a bench/chiar/ hand held shower hose/GBs luke warm water) Upper Body Dressing (QC): 6 Lower Body Dressing (QC): 6 On/Off Footwear (QC): 6 Toileting Hygiene (QC): 6 Education OT Patient Education: Correct positioning, Energy conservation, Modified ADL techniques, Progress toward Goal/Update tx plan, Purpose of tx/functional activities, Reviewed precautions, Rehab process, Safety issues, Transfer techniques, Use of adapted equipment Teaching Recipient: Patient Teaching Methods: Demonstration, Handout, Discussion Response to Teaching: Verbalize Understanding OT Bakery Worker Goals Bakery Worker Goals 1=Demonstrate adherence to instructed precautions during ADL tasks. 2=Patient will verbalize/demonstrate understanding of assistive devices/modifications for ADL. 3=Patient will improve strength/tolerance for activity to enable patient to perform ADL's. OT Education/Plan Problem List/Assessment Assessment: Decreased Activ Tolerance Discharge Recommendations Plan/Recommendations: Discontinue OT Equpiment Recommendations-D/C: Rails on Tub/Shower, Bath Chair, Extended Shower Sprayer, Home Furnishings Sales Representative Treatment Plan/Plan of Care Patient would benefit from OT for education, treatment and training to promote independence in ADL's, mobility, safety and/or upper extremity function for ADL's. Plan of Care: OTHER (EVAL w/ ECT education) Treatment Duration: Apr 04, 2023 Frequency: 1 time per week Estimated Hrs Per Day: .25 hour per day Agreement: Yes Rehab Potential: Good Remains up in recliner, visitor in room Time Start Time: 14:00 Stop Time: 14:22 DATE: Apr 04, 2023 Total Time Billed (hr/min): 22 Billed Treatment Time EVM 22 min CONSTANTINO JONES OT Apr 04, 2023 14:21
[2023-04-04] MEDS: CATHETER FLUSH 10 ML SYR IVP SCH ×2 (14:46→19:24)
[2023-04-04] MEDS: inSUlin ASPART 1 UNIT/0.01 ML (PER UNIT) SC SCH ×2 (16:05→20:18)
[2023-04-04] MEDS: AZITHROMYCIN 250 MG TABLET PO SCH (16:05)
[2023-04-04] MEDS: ENOXAPARIN 40 MG/0.4 ML SYRINGE SC SCH (16:05)
[2023-04-04 18:53] VITALS: BP 152/86
[2023-04-04] MEDS: SENNOSIDES 8.6 MG TABLET PO SCH (19:23)
[2023-04-04] MEDS ORDERED: DOCUSATE SODIUM 100 MG CAPSULE PO SCH (21:00)
[2023-04-05] VITALS (7 sets, daily range): BP systolic 130–141; BP diastolic 77–87
[2023-04-05] MEDS: RT-Ipratropium/Albuterol NEB 3 ML VIAL INH SCH ×3 (03:33→15:18)
[2023-04-05] MEDS: aCETylcysteine 20% (RT/PO) 4 ML SOLN VIAL INH SCH ×3 (03:33→15:24)
[2023-04-05] MEDS: inSUlin ASPART 1 UNIT/0.01 ML (PER UNIT) SC SCH ×3 (04:47→15:13)
[2023-04-05] MEDS: CATHETER FLUSH 10 ML SYR IVP SCH ×2 (05:47→14:37)
[2023-04-05] MEDS ORDERED: LEVOTHYROXINE 88 MCG TABLET PO SCH (06:30)
[2023-04-05] MEDS ORDERED: predniSONE 20 MG TABLET PO SCH (07:00)
[2023-04-05] MEDS ORDERED: DOCUSATE SODIUM 100 MG CAPSULE PO PRN (08:00)
[2023-04-05 08:21] LABS: HEMOGLOBIN 13.4 g/dL (13.3-17.7); MEAN PLATELET VOLUME 10.4 fL (9.0-12.2)
[2023-04-05 08:23] LABS: WHITE BLOOD COUNT 7.4 10^3/uL (4.3-11.0)
[2023-04-05 08:32] LABS: POTASSIUM 4.2 MMOL/L (3.6-5.0)
[2023-04-05 08:33] LABS: CALCIUM 8.2 MG/DL (8.5-10.1)
[2023-04-05 08:37] LABS: CREATININE SERUM 1.25 MG/DL (0.60-1.30)
[2023-04-05] MEDS: SENNOSIDES 8.6 MG TABLET PO SCH (08:46)
[2023-04-05] MEDS ORDERED: IVIG 40 GM/400 ML (PRIVIGEN) IV ONE (10:00)
[2023-04-05] MEDS: IVIG IV SCH ×2 (10:54→13:22)
--- NOTE | 2023-04-05 11:59 | Diagnostic Imaging Report ---
INDICATION: Hypoxia. Shortness of air. COMPARISON: 04/02/2023 FINDINGS: Single frontal view of the chest demonstrates normal heart size and pulmonary vascularity. Evaluation of the lung day again demonstrates patchy bibasilar airspace disease. Overall, aeration is stable. No new large effusion or pneumothorax is seen. Osseous structures show no acute abnormalities. IMPRESSION:. Stable bibasilar airspace disease concerning for pneumonia. Dictated by: Dictated on workstation # [id number]
[2023-04-05] MEDS: ENOXAPARIN 40 MG/0.4 ML SYRINGE SC SCH (16:29)
[2023-04-05] MEDS: AZITHROMYCIN 250 MG TABLET PO SCH (16:29)
--- NOTE | 2023-04-06 14:30 | Discharge Summary ---
Diagnosis/Chief Complaint Date of Admission Apr 04, 2023 at 10:25 Date of Discharge Apr 05, 2023 at 18:03 Discharge Date: Apr 05, 2023 Primary Care Dariel Mejia MD Discharge Summary Discharge Physical Exam Allergies: Coded Allergies: levofloxacin (Verified Allergy, Unknown, 12/17/18) Vitals & I&Os Vital Signs Date Time Temp Pulse Resp B/P (MAP) Pulse Ox O2 Delivery O2 Flow Rate FiO2 04/05/23 18:00 37.2 88 20 139/84 91 OxyMask 12.00 General Appearance: No Apparent Distress, Chronically ill Respiratory: No Accessory Muscle Use, Decreased Breath Sounds; No Rhonci, No Stridor, No Wheezing; Other (on 12lpm oximask) Cardiovascular: Regular Rate, Rhythm, No Murmur Gastrointestinal: Normal Bowel Sounds, Soft Neurologic/Psychiatric: Alert, Oriented x3 Hospital Course Patient was admitted to swing bed for oxygen weaning due to acute flare of interstitial lung disease following COVID illness. The morning after admission to swing bed he had an acute change in his respiratory status and went from 7 L/min to 12 L/min and was maintaining roughly 90 to 91% oxygen saturations with this. I did call and speak with his ramp service man at Dr. Zazueta who recommended going ahead and giving IVIG as we had discussed during his acute stay and checking a chest x-ray, Pro-Vivek, CRP. His Pro-Vivek and CRP were negative. I ultimately ended up contacting to arrange for transfer and he was accepted by Dr. Dee Martino. He was in agreement with this plan. We did have difficulty arranging for transportation as we had no ground ambulance available after calling a local ambulance agencies and the [place] agencies. I personally called the medical directors of both [facility] and [facility] was unable to obtain ground transport. Helicopter agencies were contacted as well but due to the weather they were unable to fly. Ultimately fixed wing was arranged for transfer. I called and updated his PCP Dr Dariel Mejia regarding this admission and transfer. Labs (last 24 hrs) Laboratory Tests 04/05/23 14:55: Glucometer 145H Patient resulted labs reviewed. Discussion & Recommendations Discharge Planning: >30 minutes discharge planning Discharge Home Medications: Active Scripts Active Reported Atorvastatin Calcium 40 Mg Tablet 20 Mg PO DAILY TAKES OF A 40MG TAB Levothyroxine Sodium 88 Mcg Tablet 88 Mcg PO DAILY Lisinopril 20 Mg Tablet 20 Mg PO DAILY Albuterol Sulfate 2.5 Mg/3 Ml (0.083 %) Vial.neb 2.5 Mg NEB Q6H PRN Instructions to patient/family Please see electronic discharge instructions given to patient. GISELLE WILKS MD Apr 06, 2023 14:30
== END 2023-04-05 18:03 | disposition short-term general hospital (02) | DRG 198 ==
LOC: 4TH 10:25
PROVIDERS: ADMIT Family Medicine; ATTEND Family Medicine
DX: J84.9 Interstitial pulmonary disease, unspecified (principal); U09.9 Post COVID-19 condition, unspecified
CPT/HCPCS: 36415; 71045; 80048; 82947; 84145; 85027; 86141; 94640; 94668; 94760